=== PATIENT | female | born 1945 | race Caucasian/White ===

== ENCOUNTER 2020-01-15 17:57 | Emergency (ER) | payer MEDICARE ==
--- OUTSIDE RECORDS SUMMARY | 2020-01-15 18:09 | XMS REPORT | Continuity of Care Document ---
:1945 External Reference #:[id number] Author Name Chaparrita Branch MD Address [address] [place] [address] Problems Active Problems Provider Date Atrophic vaginitis Chaparrita Branch MD Onset: 06/23/2019 Lichen sclerosus et atrophicus Chaparrita Branch MD Onset: 07/15/2019 Social History Type Date Description Comments Sex Unknown Tobacco Use Start: Unknown Never Smoked Cigarettes ETOH Use Occasionally consumes alcohol Recreational Drug Use Denies Drug Use Tobacco Use Start: Unknown Patient has never smoked Smoking Status Reviewed: 12/08/19 Patient has never smoked Exercise Type/Frequency Exercises regularly Seat Belt/Car Seat Always uses seat belt Allergies, Adverse Reactions, Alerts Active Allergies Reaction Severity Comments Date Codeine 05/11/2019 Hydrochlorothiazide 05/11/2019 Medications Active Medications SIG Qnty Indications Ordering Provider Date Clobetasol Propionate apply thin layer 45gm Chaparrita Branch, 07/21/2019 0.05% to area bid for MD Ointment 3 d then every day for 14d then qod for 14d then 3 x per week for 7 days then once a week as needed Magnesium Unknown Betamethasone Valerate Unknown [place] 3 Unknown Fluticasone Propionate Unknown Crestor Unknown Ventolin HFA Unknown Metoprolol Succinate ER Unknown Synthroid Unknown Amlodipine Besylate Unknown Losartan Potassium Unknown Symbicort Unknown Medications Administered in Office Medication SIG Qnty Indications Ordering Provider Date PT SCRN Tbco Id as Non User Chaparrita Branch MD 12/08/2019 Injection PT SCRN Tbco Id as Non User Chaparrita Branch MD 11/08/2019 Injection PT SCRN Tbco Id as Non User Chaparrita Branch MD 10/21/2019 Injection PT SCRN Tbco Id as Non User Chaparrita Branch MD 07/21/2019 Injection PT SCRN Tbco Id as Non User Chaparrita Branch MD 07/14/2019 Injection PT SCRN Tbco Id as Non User Kathleen Patel MD 06/23/2019 Injection PT SCRN Tbco Id as Non User Chaparrita Branch MD 05/11/2019 Injection Immunizations Description No Information Available Vital Signs Date Vital Result Comment 12/08/2019 9:14am BP Systolic 138 mmHg BP Diastolic 84 mmHg Height 64 inches 5'4" Weight 126.00 lb BMI (Body Mass Index) 21.6 kg/m2 Last Menstrual Period 6105016 4 Parity 2 11/08/2019 3:14pm BP Systolic 120 mmHg BP Diastolic 60 mmHg Height 64 inches 5'4" Weight 126.00 lb BMI (Body Mass Index) 21.6 kg/m2 Last Menstrual Period 1145382 4 Parity 2 Results Test Acquired Date Facility Test Result H/L Range Note Laboratory test 07/14/2019 [facility] Surgical SEE RESULT [address] [place] [address] Pathology BELOW [phone] 1 SEE RESULT BELOW Name: BEST KAPADIA : [address]: Chaparrita Branch MD Acct: [id number] Unit: [id number] AGE: 74 Location: [facility] Re07/14/19 SEX: F Status: REG REF SPEC: [id number] JACKIE: 07/14/19-[address] [facility] [address]: Chaparrita Branch MD REQ: [id number] RECD: 07/14/19 STATUS: SOUT _ ORDERED: LEVEL 4 COMMENTS: [id number] FINAL DIAGNOSIS Skin, vulva, biopsy: -- Lichen sclerosus et atrophicus. PRE-OPERATIVE DIAGNOSIS Inflamed vulva GROSS DESCRIPTION The specimen is received in formalin with no source identified and a requisition labeled, Vulvar Biopsy, and consists of a 0.2 cm ashraf-white hairbearing circular skin punch excised to a depth of 0.1 cm which is submitted entirely in one cassette. Signed by and Reported on: Georgia Yanez MD 07/16/19 1343 END OF REPORT DEPARTMENT OF PATHOLOGY, [address] [place] [address] Niko Mixon M.D. Director [facility] # [id number] Procedures Date Code Description Status 07/14/2019 14875 Biopsy Vulva/Perineum One Lesion Completed Medical Devices Description No Information Available Encounters Type Date Location Provider Dx Diagnosis Office Visit 12/08/2019 [facility] Chaparrita Branch, L90.0 Lichen sclerosus et 8:45a atrophicus Office Visit 11/08/2019 [facility] Chaparrita Branch L90.0 Lichen sclerosus et 3:15p atrophicus Office Visit 10/21/2019 [facility] Chaparrita Branch L90.0 Lichen sclerosus et 10:40a atrophicus Office Visit 07/21/2019 [facility] Chaparrita Branch L90.0 Lichen sclerosus et 1:00p atrophicus Office Visit 07/14/2019 [facility] Chaparrita Branch N95.2 Postmenopausal atrophic 11:30a MD vaginitis L90.0 Lichen sclerosus et atrophicus Office Visit 06/23/2019 2:30p [facility] Kathleen Patel N95.2 Postmenopausal MD atrophic vaginitis Assessments Date Code Description Provider 12/08/2019 L90.0 Lichen sclerosus et atrophicus Chaparrita Branch MD 11/08/2019 L90.0 Lichen sclerosus et atrophicus Chaparrita Branch MD 10/21/2019 L90.0 Lichen sclerosus et atrophicus Chaparrita Branch MD 07/21/2019 L90.0 Lichen sclerosus et atrophicus Chaparrita Branch MD 07/14/2019 N95.2 Postmenopausal atrophic vaginitis Chaparrita Branch MD 07/14/2019 L90.0 Lichen sclerosus et atrophicus Chaparrita Branch MD 06/23/2019 N95.2 Postmenopausal atrophic vaginitis Kathleen Patel MD Plan of Treatment Future Appointment(s):02/10/2020 9:30 am - Chaparrita Branch MD at [place]/08/2019 - Chaparrita Branch MDL90.0 Lichen sclerosus et atrophicusComments:Pt to continue with clobetasol/ 2x per week at present . Pt to supplement with AD ointment in between. Pt to f/ in 2-3 months. Functional Status Description No Information Available Mental Status Description No Information Available Referrals Description No Information Available
--- OUTSIDE RECORDS SUMMARY | 2020-01-15 18:09 | XMS REPORT | Continuity of Care Document ---
:1945 External Reference #:[id number] Author Name Korin Nelson PA (transmitted by agent of provider Guillermo Weber) Address [address], [address] [place] [address] Care Team Providers Name Role Phone Ange Genao MD - Internal Medicine Care Team Information Dumb Waiter Operator [phone] Natanael Turk MD - Family Care Team Information Dumb Waiter Operator [phone] Medicine Problems Active Problems Provider Date Chest pain Silvia Paez PA Onset: 09/18/2018 Allergic rhinitis Silvia Paez PA Onset: 09/18/2018 Mild persistent asthma Silvia Paez PA Onset: 09/18/2018 Social History Type Date Description Comments Sex Unknown Tobacco Use Start: Unknown End: Former Cigarette Smoker small amt. in her Unknown 20's ETOH Use Rarely consumes alcohol Tobacco Use Start: Unknown Patient denies history of smoking Recreational Drug Use Denies Drug Use Smoking Status Reviewed: 12/03/19 Patient denies history of smoking Allergies, Adverse Reactions, Alerts Active Allergies Reaction Severity Comments Date Codeine 12/03/2016 Hydrochlorothiazide 12/03/2016 Lipitor 04/23/2017 Medications Active Medications SIG Qnty Indications Ordering Date Provider Losartan Potassium Take 1 Tablet By 90tabs I10 Guillermo Weber MD 10/22/2017 Mouth Once Daily AT 25mg Tablets Bedtime Amlodipine Besylate 1 by mouth every Unknown day 5mg Tablets Synthroid 1 by mouth every Unknown 75mcg day Tablets Metoprolol Tartrate 1 by mouth twice a Unknown day 25mg Tablets Ventolin HFA 1-2 puffs every 4-6 Unknown hours as needed 108(90Base) mcg/Act Aerosol Crestor 1 by mouth every Unknown 5mg Tablets day Fluticasone 2 sprays intranasal Unknown Propionate every day 50mcg/Act Suspension Scurry 3 2 by mouth every Unknown 1000mg day Capsules Magnesium Lactate 5-6 daily Unknown Capsule Aspirin 1 by mouth every I25.10 Unknown 81mg Tablets day Montelukast Sodium take 1 tablet Unknown daily. 10mg Tablets Famotidine Take 1 Tablet By Unknown 20mg Mouth bid prn Tablets History Medications Symbicort 2 puffs inhaled 30.6gm J45.40 Oren Rivas, 09/23/2019 - 80-4.5mcg/Act twice a day, Unknown Aerosol rinse mouth after every use. Immunizations Description No Information Available Vital Signs Date Vital Result Comment 12/03/2019 2:48pm BP Systolic Sitting Right Arm 130 mmHg BP Diastolic Sitting Right Arm 75 mmHg Heart Rate 77 /min Respiratory Rate 20 /min Height 66 inches 5'6" Weight 126.00 lb BMI (Body Mass Index) 20.3 kg/m2 BSA (Body Surface Area) 1.64 m2 [place] body weight in kilograms 59 kg O2 % BldC Oximetry 95 % Ra 09/23/2019 10:02am BP Systolic Sitting Right Arm 110 mmHg BP Diastolic Sitting Right Arm 73 mmHg Heart Rate 72 /min Respiratory Rate 14 /min Height 66 inches 5'6" Weight 130.00 lb BMI (Body Mass Index) 21.0 kg/m2 BSA (Body Surface Area) 1.67 m2 [place] body weight in kilograms 59 kg O2 % BldC Oximetry 93 % Results Description No Information Available Procedures Date Code Description Status 12/03/2019 38570 EKG-Tracing And Report Completed Medical Devices Description No Information Available Encounters Type Date Location Provider Dx Diagnosis Office Visit 12/03/2019 Cardiology Office Korin Nelson 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., 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 I10 Essential (primary) hypertension I51.81 Takotsubo syndrome E78.2 Mixed hyperlipidemia K44.9 Diaphragmatic hernia without obstruction or gangrene Office Visit 09/23/2019 10:00a Pulmonology Silvia Paez, J44.9 Chronic obstructive PA pulmonary disease, unspecified J45.40 Moderate persistent asthma, uncomplicated Assessments Date Code Description Provider 12/03/2019 I25.10 Atherosclerotic heart disease of [place] LeslieRee lópezvalerie Hernandez , PA coronary artery without angina pectoris 12/03/2019 I10 Essential (primary) hypertension Leslie Korin Hernandez, PA 12/03/2019 I51.81 Takotsubo syndrome Korin Nelson, PA 12/03/2019 E78.2 Mixed hyperlipidemia Ree Nelsons Ihsan., PA 12/03/2019 K44.9 Diaphragmatic hernia without obstruction or Korin Nelson, PA gangrene 09/23/2019 J44.9 Chronic obstructive pulmonary disease, Silvia Paez, PA unspecified 09/23/2019 J45.40 Moderate persistent asthma, uncomplicated Silvia Paez, DANYELL Plan of Treatment Future Appointment(s):03/21/2020 1:00 pm - Libby Valero MD at [facility] /28/2020 11:40 am - Guillermo Weber MD at Cardiology [facility]12/03/2019 - Korin Nelson, PAI25.10 Atherosclerotic heart disease of [place] coronary artery without angina pectorisComments:Continue with medical management. No changes.I10 Essential (primary) hypertensionComments:BP goal is <140/90 mmHg. No changes.I51.81 Takotsubo syndromeComments:Monitor.E78.2 Mixed hyperlipidemiaComments:Will get a copy of the most recent lipids. Will need to have total cholesterol <200 and LDL <70.K44.9 Diaphragmatic hernia without obstruction or gangreneComments:Advised to follow up with PCP.AllFollow up:6 months Functional Status Functional Condition Comment Date Status Glasses Active Independent with all ADL's Active Mental Status Description No Information Available Referrals Description No Information Available
[2020-01-15 18:14] VITALS: BP 148/75
[2020-01-15] MEDS ORDERED: Albuterol/Ipratropium NEB.SOL* Albuterol 2.5 MG/Ipratropium 0.5 MG 3 ML INH ONE (18:22)
[2020-01-15 18:36] LABS: Influenza A Molecular Negative (Negative); Influenza B Molecular Negative (Negative)
--- NOTE | 2020-01-15 18:39 | UC ---
Shortness of Breath HPI - HPI Summary HPI Summary: Patient is 74 year old female , who presents today to the urgent care with upper respiratory symptoms for past 1 week. Denies any sick contacts She reports Coughing for about a week. Last night was up all night coughing, nothing helped. [place] like her chest was heavy last night. Feels SOB. She has a history of COPD and asthma. She did try a nebulizer at home without much relief. Denies any sore throat, fever, chills, Denies any abdominal pain , nausea or vomiting , diarrhea or constipation. - History of Current Complaint Chief Complaint: UCGeneralIllness Stated Complaint: CONGESTION COUGH Time Seen by Provider: 01/15/20 18:04 Hx Obtained From: Patient ?: No - Allergy/Home Medications Allergies/Adverse Reactions: Allergies Allergy/AdvReac Type Severity Reaction Status Date / Time codeine Allergy Rash Verified 01/15/20 18:14 hydrochlorothiazide Allergy Hives Verified 01/15/20 18:14 Home Medications: Home Medications Levothyroxine TAB* [Synthroid 75 MCG TAB*] 75 mcg PO DAILY 08/31/16 [History Confirmed 01/15/20] Magnesium l-Lactate [Mag-Tab Sr] 84 mg PO DAILY 08/31/16 [History Confirmed ] Metoprolol Tartrate TAB* [Lopressor TAB*] 25 mg PO BID 08/31/16 [History Confirmed 01/15/20] Mantua-3 Fatty Acids/Fish Oil [Mantua 3 1,000 mg Softgel] 2 cap PO DAILY 08/31/16 [History Confirmed 01/15/20] Rosuvastatin (NF) [Crestor (NF)] 5 mg PO 1700 08/31/16 [History Confirmed ] amLODIPine TAB* [Norvasc 5 mg TAB*] 5 mg PO DAILY 08/31/16 [History Confirmed ] Albuterol Sulfate [Ventolin Hfa] 1 gm IH Q4H PRN 01/15/20 [History Confirmed ] Azithromycin TAB* [Zithromax TAB (Z-JESSIKA) 250 mg #6 tabs] 250 mg PO DAILY 4 Days #4 tab 01/15/20 [Rx] Benzonatate CAP* [Tessalon 100 MG CAP*] 100 mg PO TID PRN 10 Days #30 cap [Rx] Fluticasone Propionate [24 Hour Allergy Relief] 15.8 ml NS DAILY 01/15/20 [ History Confirmed 01/15/20] predniSONE 50 mg TAB [Deltasone 50 mg TAB] 50 mg PO DAILY 4 Days #4 tab [Rx] PMH/Surg Hx/FS Hx/Imm Hx - Additional Past Medical History Additional PMH: Past Medical History : COPD, asthma, hypertension Past Surgical History: Bypass surgery: 2005 at [facility] Family History : parents with cardiac problems, sister with cardiac problems. Social History : Rare alcohol, non smoker, no drug use. . Previously Healthy: Yes - Surgical History Surgical History: Yes Surgery Procedure, Year, and Place: Quadruple Bypass, [facility], [facility] - Family History Known Family History: Positive: Cardiac Disease, Hypertension, Respiratory Disease - Social History Alcohol Use: Rare Substance Use Type: None Smoking Status (MU): Never Smoked Tobacco - Immunization History Most Recent Influenza Vaccination: Not the 2015/2016 Season Hx Tetanus, Diphtheria Vaccination: No - UNKNOWN Vaccination Up to Date: Yes Review of Systems All Other Systems Reviewed And Are Negative: Yes Constitutional: Positive: Fatigue. Negative: Fever Skin: Positive: Negative Eyes: Positive: Negative ENT: Positive: Negative Respiratory: Positive: Shortness Of Breath, Cough Cardiovascular: Positive: Other - chest tightness Gastrointestinal: Positive: Negative Genitourinary: Positive: Negative Motor: Positive: Negative Neurovascular: Positive: Negative Musculoskeletal: Positive: Negative Neurological/Mental Status: Positive: Negative Psychological: Positive: Negative Is Patient Immunocompromised?: No Physical Exam - Summary Physical Exam Summary: Physical Exam: Const: Appears well. No signs of apparent distress present. Alert and oriented x 3. Musculo: Walks with a normal gait. Head/Face: Atraumatic, normocephalic on inspection. Eyes: EOMI and PERRLA in both eyes. Conjunctivae clear. No discharge noted ENT: Hearing normal, TM normal appearing bilaterally, non bulging , non erythematous No significant pharyngeal erythema or exudates . Uvula is midline. No cervical or submandibular lymphadenopathy noted. Respiratory: Respirations are unlabored. Air entry equal bilaterally, there is right lower lobe crackles noted. No wheezing or rhonchi noted CVS: Regular rate and Rhythm, S1S2 normal , no murmurs identified. Extremities: Peripheral circulation is grossly normal. Pulses 2+ Abdomen : Soft non tender , nondistended , Bowel sounds present . No guarding , rebound tenderness or rigidity noted. Skin: No lesions or rash located on the upper extremities or on the lower extremities. Neuro: Cranial nerves II to XII intact, motor and sensory intact. DTR Intact bilaterally. Mood is normal. Affect is normal. Triage Information Reviewed: Yes Vital Signs: Initial Vital Signs Temp 98.5 F 01/15/20 18: Pulse 108 01/15/20 18: Resp 24 01/15/20 18:02 BP 148/75 01/15/20 18: Pulse Ox 98 01/15/20 18:02 Vital Signs Reviewed: Yes Diagnostics - Radiology No standard instances Radiology Interpretation Completed By: ED Physician - Chest x-ray: Diffuse prominence of interstitial markings, peribronchial cuffing. Right lower lobe infiltrate - EKG Cardiac Rate: Tachycardia Cardiac Rhythm: Sinus: Normal ST Segment: Normal Summary of EKG Findings: Sinus tachycardia with rate of 100, normal axis increased TN interval with first-degree heart block, normal QRS, T-wave inversion in V1. No STEMI. Shortness of Breath Dx - Course Course Of Treatment: EKG: Sinus tachycardia with rate of 100, normal axis increased TN interval with first-degree heart block, normal QRS, T-wave inversion in V1. No STEMI. Chest x-ray: Diffuse prominence of interstitial markings, peribronchial cuffing. Right lower lobe infiltrate Flu test: Negative I advised her that her X-rays will be read tomorrow morning by radiologist and if anything different, somebody will call you with the findings and further plan. She was given 1 treatment with DuoNeb nebulizer and she felt much better. Symptoms appear to be secondary to right lower lobe pneumonia with COPD exacerbation. She was given 1 dose of azithromycin and prednisone here and rest was prescribed to the pharmacy. She was advised to follow-up with the primary care doctor in 2 days - Differential Dx/Diagnosis Provider Diagnosis: Pneumonia, COPD exacerbation Discharge ED - Sign-Out/Discharge Documenting (check all that apply): Patient Departure All imaging exams completed and their final reports reviewed: No - Discharge Plan Condition: Stable Disposition: HOME Prescriptions: Azithromycin TAB* [Zithromax TAB (Z-JESSIKA) 250 mg #6 tabs] 250 mg PO DAILY 4 Days #4 tab Benzonatate CAP* [Tessalon 100 MG CAP*] 100 mg PO TID PRN 10 Days #30 cap PRN Reason: Cough predniSONE 50 mg TAB [Deltasone 50 mg TAB] 50 mg PO DAILY 4 Days #4 tab Patient Education Materials: COPD (Chronic Obstructive Pulmonary Disease) (ED) , Pneumonia (ED) Referrals: Natanael Turk MD [Primary Care Provider] - 2 Days Additional Instructions: Please start taking the medication as prescribed to the pharmacy . Your x-rays were done after 6 PM and no official radiology read is available at this time . X-rays will be read tomorrow morning by radiologist and if anything different, somebody will call you with the findings and further plan. Nebulizer as needed every 4-6 hours for shortness of breath. Follow up with your primary care doctor in 2 days. Patients blood pressure slightly high in Urgent care today , plan follow up with PCP for better control within 4 weeks. Return to Urgent care / ER if symptoms get worse. - Billing Disposition and Condition Condition: STABLE Disposition: Home
[2020-01-15] MEDS ORDERED: Azithromycin TAB* 250 MG PO ONE (18:52)
--- NOTE | 2020-01-16 08:49 | UC ---
- Progress Note Progress Note: Please notify patient her CXR was reviewed by the radiologist and show likely right lower lobe pneumonia. She should take the antibiotics as prescribed and follow-up with her primary care physician for a repeat Chest x-ray in one month to confirm resolution. - EKG/XRAY/CT XRAY: chest - Clinical Program Director: Zain Maria ([id number]) Professional Wrestler: BULMARO (NUANCE) Report Date: 01/16/2020 08:35:00 Report Status: Final Start of Report Content === Patient Name: BEST KAPADIA Medical Record#: [id number] Ordering Physician: Corine Wilcox MD Acct.#: [id number] : 1945 Age: 74 Sex: F Location: [facility] Exam Date: 01/15/201821 ADM Status: [facility] ER Order Information: CHEST PA LAT 2 VWS Accession Number: [id number] CPT: 64070 INDICATION: Chest tightness COMPARISON: Chest x-ray dated February 17, 2017 TECHNIQUE: PA and lateral views of the chest were obtained. FINDINGS: The heart and mediastinum are normal in size and contour. The prior chest x-ray, the lungs are hyperaerated, the diaphragm flattened and there is an increased retrosternal airspace. There is patchy density at the right lung base not seen on the previous chest x-ray. Visualized bones are normal for the patient's age. There is no radiographic evidence of free air beneath the diaphragm IMPRESSION: INFILTRATE AT THE RIGHT LOWER LOBE COULD BE PNEUMONIA IN THE CORRECT CLINICAL SETTING ON A BACKGROUND OF CHRONIC OBSTRUCTIVE PULMONARY DISEASE. A FOLLOW-UP CHEST X-RAY AFTER AN APPROPRIATE COURSE OF THERAPY IS ADVISED TO DETERMINE RESOLUTION. R0 Preliminary Imaging Read R0 < Electronically signed by Zain Maria MD in OV> 01/16/20829 Dictated By: Zain Maria MD Dictated Date/Time: 01/16/20820 Transcribed Date/Time: 820 Copy to: CC:Natanael Turk MD; Corine Wilcox MD Imaging - [facility] Imaging - [facility] Imaging - [facility] [address] [address] ph [phone]) ph [phone]) ph [phone]) ===== End of Report Content Course/Dx - Diagnoses Provider Diagnoses: Pneumonia, COPD exacerbation Discharge ED - Sign-Out/Discharge Documenting (check all that apply): Post-Discharge Follow Up All imaging exams completed and their final reports reviewed: Yes - Discharge Plan Condition: Stable Disposition: HOME Prescriptions: Azithromycin TAB* [Zithromax TAB (Z-JESSIKA) 250 mg #6 tabs] 250 mg PO DAILY 4 Days #4 tab Benzonatate CAP* [Tessalon 100 MG CAP*] 100 mg PO TID PRN 10 Days #30 cap PRN Reason: Cough predniSONE 50 mg TAB [Deltasone 50 mg TAB] 50 mg PO DAILY 4 Days #4 tab Patient Education Materials: COPD (Chronic Obstructive Pulmonary Disease) (ED) , Pneumonia (ED) Referrals: Natanael Turk MD [Primary Care Provider] - 2 Days Additional Instructions: Please start taking the medication as prescribed to the pharmacy . Your x-rays were done after 6 PM and no official radiology read is available at this time . X-rays will be read tomorrow morning by radiologist and if anything different, somebody will call you with the findings and further plan. Nebulizer as needed every 4-6 hours for shortness of breath. Follow up with your primary care doctor in 2 days. Patients blood pressure slightly high in Urgent care today , plan follow up with PCP for better control within 4 weeks. Return to Urgent care / ER if symptoms get worse. - Billing Disposition and Condition Condition: STABLE Disposition: Home
== END 2020-01-15 19:24 | disposition home or self-care (01) ==
LOC: UCCORT 17:57
DX: J44.1 Chronic obstructive pulmonary disease with (acute) exacerbation (principal); R91.8 Other nonspecific abnormal finding of lung field; R00.0 Tachycardia, unspecified; J18.9 Pneumonia, unspecified organism; I10 Essential (primary) hypertension; Z88.5 Allergy status to narcotic agent; Z88.8 Allergy status to other drugs, medicaments and biological substances; Z79.899 Other long term (current) drug therapy
CPT/HCPCS: 71046; 93005; 99213; A9270-GY; G0463; J7512